=== PATIENT | male | born 1960 | race Caucasian/White ===

== ENCOUNTER 2016-10-31 12:34 | Emergency (ER) | payer OTHER ==
[2016-10-31 12:44] VITALS: BP 113/76; RESP 16; TEMP 98.2; O2SAT 96
[2016-10-31] MEDS ORDERED: TDAP ADULT 0.5 ML INJ (BOOSTRIX) IM ONE (12:51)
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
[2016-10-31 14:14] VITALS: PULSE 68
== END 2016-10-31 14:13 | disposition home or self-care (01) ==
PROC: 0RSWXZZ Reposition Right Finger Phalangeal Joint, External Approach (ICD-10-PCS; principal; 2016-10-31)
DX: S63.284A Dislocation of proximal interphalangeal joint of right ring finger, initial encounter (principal); S62.624A Displaced fracture of middle phalanx of right ring finger, initial encounter for closed fracture; Z23 Encounter for immunization; V18.9XXA Unspecified pedal cyclist injured in noncollision transport accident in traffic accident, initial encounter; Y92.410 Unspecified street and highway as the place of occurrence of the external cause
CPT/HCPCS: L3925